=== PATIENT | male | born 1970 | race African-American/Black ===

== ENCOUNTER → 2016-12-19 | Outpatient (CLI) | payer OTHER | LOC: RAD 20:07 | PROVIDERS: ATTEND Specialist | DX: C90.02 Multiple myeloma in relapse (principal) | CPT/HCPCS: 78816; A9552 ==

== ENCOUNTER → 2016-12-20 | Outpatient (CLI) | payer OTHER | LOC: WI 08:06 | PROVIDERS: ATTEND Specialist | DX: M81.0 Age-related osteoporosis without current pathological fracture (principal) | CPT/HCPCS: 77080 ==